=== PATIENT | male | born 1975 | race Hispanic/Latino ===

== ENCOUNTER 2024-11-25 18:19 | Emergency (ER) | payer OTHER ==
[~2024-11-25] VITALS: Ht 180.3 cm; Wt 81.6 kg
--- NOTE | 2024-11-25 18:28 | ERN ---
ED Note History of Present Illness Stated Complaint: RIGHT TOE FRACTURE Chief Complaint: FOOT INJURY/PAIN Time Seen by MD: 18:22 Dictation: PATIENT IS HERE WITH A LACERATION TO THE RIGHT MEDIAL HAND AND RIGHT GREAT TOE AFTER A TRAILER FELL ON IT AT WORK. TETANUS SHOT WAS UPDATED AT THE [facility] WHERE HE WAS PRESENTED IN ADDITION THEY DID AN X-RAY AND TOLD HIM THAT HE HAD A BROKEN TOE. HE WAS PLACED IN A BOOT, REFERRED TO [facility] FOR FURTHER EVALUATION AND TREATMENT OF THE PROBABLE OPEN FRA N NOTE THAT PATIENT HAD HIS WORK BOOTS ON AT THE TIME OF THE INCIDENT Allergies: Coded Allergies: No Known Drug Allergies (Unverified Allergy, Unknown, 11/25/24) Past Medical History RN Note Reviewed/Agreed w/PFSH: Yes Review of System Dictation CONSTITUTIONAL: NEGATIVE EXCEPT FOR HPI HEAD/FACE: NEGATIVE EXCEPT FOR HPI EENT: NEGATIVE EXCEPT FOR HPI RESPIRATORY: NEGATIVE EXCEPT FOR HPI GASTROINTESTINAL/ABDOMINAL: NEGATIVE EXCEPT FOR HPI GENITOURINARY: NEGATIVE EXCEPT FOR HPI MUSCULOSKELETAL: NEGATIVE EXCEPT FOR HPI PARTIAL NAIL AVULSION RIGHT GREAT TOE INTEGUMENTARY: NEGATIVE EXCEPT FOR HPI LEFT HAND PALMAR LACERATION NEUROLOGICAL/PSYCH: NEGATIVE EXCEPT FOR HPI HEMATOLOGIC/LYMPHATIC: NEGATIVE EXCEPT FOR HPI ALL SYSTEMS NEGATIVE, EXCEPT NOTED ABOVE. 13 POINT REVIEW OF SYSTEMS ASSESSED AND ALL NEGATIVE EXCEPT FOR ABOVE. Initial Vital Sign VS Vital Signs Date Time Temp Pulse Resp B/P (MAP) Pulse Ox O2 Delivery O2 Flow Rate FiO2 11/25/24 18:22 98.2 90 16 184/90 98 Room Air 0 Physical Exam Dictation VITAL SIGNS REVIEWED GENERAL APPEARANCE: ALERT, ORIENTED X 3, MODERATE ACUTE DISTRESS, WELL DEVELOPED, NOURISHED. HEAD AND FACE: NON-TRAUMATIC. EYES: PERRL, PINK CONJUNCTIVAS, EYELID NO TRAUMA, ANTERIOR CHAMBER WITH ARCUS SENILIS. EARS: PINNAS INTACT AND NO SIGNS OF TRAUMA OR ERYTHEMA EAR CANALS CLEAR AND NO DISCHARGE TM NO ERYTHEMA NOSE: NO DISCHARGE, NO BLEEDING. OROPHARYNX: MOUTH NORMAL, TONGUE PINK, PHARYNX CLEAR,NO ERYTHEMA, TONSILS NO EXUDATES, NO ABSCESSES NOTED, MUCOUS MEMBRANE MOIST NECK: SUPPLE, NON-TENDER, NO THYROMEGALY, NO MASSES, NO JVD, NO BRUITS BREAST:DEFERRED CHEST:NO TENDERNESS, NO CREPITUS, NO PARADOXICAL MOVEMENT, NO RETRACTIONS LUNGS:CLEAR, WELL-VENTILATED, SYMMETRIC, NO RALES, NO WHEEZING, NO RHONCHI, NO STRIDOR, GOOD BREATH SOUNDS BILATERALLY HEART: REGULAR RATE, REGULAR RHYTHM, NO MURMUR, NO GALLOPS VASCULAR: NO PERIPHERAL EDEMA, ABDOMEN: SOFT, POSITIVE BOWEL SOUNDS, NONDISTENDED, NO GUARDING, NONTENDER, NO REBOUND, NO MASSES NO HEPATOMEGALY, NO SPLENOMEGALY, NO ELLIS'S SIGN, NO HERNIAS. RECTAL: DEFERRED GENITAL: DEFERRED NEUROLOGICAL: NORMAL SPEECH, MOTOR FUNCTION INTACT, SENSORY FUNCTION INTACT MUSCULOSKELETAL: NECK NONTENDER, FULL RANGE OF MOTION, BACK NONTENDER, FULL RANGE OF MOTION, EXTREMITIES: NONTENDER, FULL RANGE OF MOTION SKIN: COLOR PINK, DRY,2 CM LACERATION TO PALMAR BASE OF LEFT 5TH FINGER. ALSO PARTIAL AVULSION OF RIGHT GREAT TOENAIL LYMPHATIC: DEFERRED Results (Laboratory/Radiology) Laboratory/Radiology LEFT FOOT X-RAY DEMONSTRATES TRANSVERSE FRACTURE OF DISTAL PHALANX OPEN DUE TO NAIL WAS AVULSED Labs Reviewed?: Yes ED Course ED Course Orders Procedure Category Date Status Time Foot Comp 3+Vws Rt RAD 11/25/24 Taken 18:24 Cefazolin Sodium 1 Gm PHA 11/25/24 Complete Vial (Ancef 1 Gm V 18:24 Saline Lock Iv CPOE 11/25/24 Transmitted 18:24 Lidocaine Hcl 1% 20ml PHA 11/25/24 In Process Vial (Lidocaine Hc 18:30 Ketorolac PHA 11/25/24 Complete Tromethamine 30mg/Ml 18:30 Neomy PHA 11/25/24 Complete Sulf/Bacitra/Polymyxin 18:30 Morphine 2mg Syg PHA 11/25/24 Complete (Morphine 2mg Syg) 19:30 Ondansetron 4mg Inj PHA 11/25/24 Complete (Zofran 4mg Inj) 19:30 Current Medications Medications (Trade) Dose Ordered Sig/Claire Route PRN Reason Start Time Stop Time Status Last Admin Dose Admin Cefazolin Sodium (ANCEF 1 gm vial) 2 gm ONCE STAT IVPB 11/25/24 18:24 11/25/24 18:27 DC 11/25/24 19:43 Ketorolac Tromethamine (toRADol) 30 mg ONCE ONCE IVP 11/25/24 18:30 11/25/24 19:12 DC Lidocaine HCl (Lidocaine HCl 1% 20ml Vial) 10 ml ONCE INJ 11/25/24 18:30 12/25/24 18:29 Morphine Sulfate (morPHINE 2MG SYG) 2 mg ONCE ONCE IVP 11/25/24 19:30 11/25/24 19:31 DC 11/25/24 19:44 Neomycin/ Polymyxin/ Bacitracin (Triple Antibiotic Ointment) 1 appl ONCE ONCE TP 11/25/24 18:30 11/25/24 18:31 DC 11/25/24 19:43 Ondansetron HCl (zoFRAN 4MG INJ) 4 mg ONCE ONCE IVP 11/25/24 19:30 11/25/24 19:31 DC 11/25/24 19:43 Vital Signs Date Time Temp Pulse Resp B/P (MAP) Pulse Ox O2 Delivery O2 Flow Rate FiO2 11/25/24 18:22 98.2 90 16 184/90 98 Room Air 0 1919/SPOKE WITH DR. REYNOSO REGARDING OPEN FRACTURE OF LEFT GREAT TOE. SHE SAID SEND PATIENT HOME WITH [facility] AND HAVE HIM FOLLOW UP WITH HIS DOCTOR TOMORROW FOR REFERRAL TO HER [facility]OUGH [facility]. LEFT 1ST TOE WAS NYDIA TAPE TWO 4TH TOE WITH PADDING. DISTAL NEUROVASCULAR CMS INTACT POST SPLINT PLACEMENT PATIENT GIVEN WOUND CARE INSTRUCTIONS AND TOLD TAKE ANTIBIOTICS DIRECTED UNTIL GONE KEEP LACERATION CLEAN AND DRY FOLLOW BACK UP AT URGENT CARE FOR ORTHOPEDIC REFERRAL. Medical Decision Making MDM MEDICAL DISCHARGE MAKING BASED ON X-RAY OF LEFT FOOT. NAIL AVULSION WAS REPLACED AND SUTURED DOWN LACERATION TO LEFT PALMAR HAND WAS SUTURED SPLINT PLACED TO LEFT 4TH AND 5TH TOES WITH PADDING. NEUROVASCULAR CMS INTACT PATIENT AND GIVEN STRICT INSTRUCTIONS ON WOUND MANAGEMENT TO INCLUDE TAKING ANTIBIOTICS DIRECTED KEEPING WOUNDS CLEAN AND DRY DILIGENT FOLLOW UP WITH HIS DOCTOR IN MANAGEMENT OF OPEN FRACTURE OF TOE Procedure Procedure Dictation: 1909/PROCEDURE EXPLAINED TO PATIENT HE AGREED TO PROCEED LEFT GREAT TOENAIL AVULSED OFF WITHOUT LACERATION. 3 ML 1% LIDOCAINE PLAIN USED FOR DIGITAL BLOCK CUTICLE BED AND TOE CLEANSED THOROUGHLY WITH WOUND CLEANSER TOENAIL WAS REPLACED ANATOMICALLY SUTURED IN PLACE WITH FOUR 3-0 NYLON SUTURES. THROUGH NAIL BED PATIENT TOLERATED WELL NAIL FIRMLY AT HERE TO CUTICLE BED SECOND LACERATION LEFT PALMAR HAND AT THE BASE OF THE 5TH FINGER 2 CM LACERATION USED 2 ML LIDOCAINE 1% PLAIN FOR LOCAL ANESTHETIC CLEANED WITH WOUND CLEANSER LACERATION CLOSED WITH FIVE 4-0 PROLENE SIMPLE INTERRUPTED SINGLE-LAYER CLOSURE PATIENT TOLERATED WELL DX & DISP Disposition: Discharge Departure Impression: Primary Impression: Open fracture of left great toe Additional Impressions: Avulsion of toenail of left foot, Laceration of right hand, Crushing injury of left great toe, initial encounter Condition: Stable Scripts Acetaminophen with Codeine (Acetaminophen-Cod #3 Tablet) 300 Mg-30 Mg Tablet 1 TAB PO Q4H PRN for MODERATE TO SEVERE PAIN, #15 TAB 0 Refills Prov: DEVON FLORES NP 11/25/24 Mupirocin (Bactroban 2% Oint) 2 % Oint 1 APPL TP TID for 5 Days, #15 GM 0 Refills apply to affected area(s) Prov: DEVON FLORES NP 11/25/24 Cephalexin (Cephalexin) 500 Mg Tablet 1 TAB PO TID for 10 Days, #30 TAB 0 Refills Prov: DEVON FLORES NP 11/25/24 Additional Instructions: Follow-up with primary care provider in 1 to 2 days. Take medications as directed here in the emergency room. Okay to continue home medications unless otherwise discussed during your visit in the emergency room today. Return to your nearest emergency room if symptoms worsen or if there is no improvement. Call 911 if you need immediate assistance. Take Tylenol or Motrin [id number] as needed and if no contraindications are present. Increase oral hydration. A wound culture or urine culture was ordered here in the emergency room department please follow-up with primary care provider and advise them to get repeat ports from our facility. If you had any Nuno wrap/splints that were applied here, please do not remove them until you see your primary care or specialty. Keep laceration repairs clean and dry. Apply Bactroban ointment3 times a day with dressing for five days as instructed. Take antibiotics as directed until gone. Follow up with your doctor for referral to Orthopedics. Splint and no weight-bearing left foot until cleared by ortho. Referrals: ANGELY REYNOSO MD Time of Disposition: 20:37 I have reviewed the case, and I agree with, Diagnosis and Plan DEVON FLORES NP Nov 25, 2024 18:28
[2024-11-25] MEDS ORDERED: ketOROlac 30MG VIAL (30MG/ML) IVP ONE (18:30)
[2024-11-25] MEDS: LIDOCAINE HCL 1% 20 ML VIAL INJ SCH (18:30)
[2024-11-25] MEDS: ceFAZolin SODIUM 1 GM VIAL IVPB STA (19:43)
[2024-11-25] MEDS: NEOMY SULF/BACITRA/POLYMYXIN B 1 EACH PACKET TP ONE (19:43)
[2024-11-25] MEDS: ondanSETRON 4MG INJ IVP ONE (19:43)
[2024-11-25] MEDS: morPHINE 2 MG SYG IVP ONE (19:44)
--- NOTE | 2024-11-25 19:52 | NUR ---
LIDOCAINE ADMINISTERED BY Danni FLORES NP TO R DAGO TOE
[2024-11-25] MEDS ORDERED: ACET-2079 PO (20:41)
[2024-11-25] MEDS ORDERED: MUPI22O TP (20:41)
[2024-11-25] MEDS ORDERED: CEPH500T PO (20:41)
--- NOTE | 2024-11-25 21:01 | HMCIMG ---
Exam Type: FOOT COMP 3+VWS RT Clinical Information: RIGHT GREAT TOE LACERATION AFTER TRAILER FELL ON Comparison: None Findings and impression: Nondisplaced fracture of the distal phalanx of the first toe. No other abnormalities.
--- NOTE | 2024-11-25 21:25 | HMCIMG ---
Exam Type: FEMUR 2VW RIGHT Clinical Information: DISTAL ANTERIOR RIGHT THIGH ABRASION WITH PAIN Comparison: None Findings: The bone examination is unremarkable. No fractures or dislocations are seen. No radiopaque foreign bodies are noted. Soft tissues are preserved. IMPRESSION: Normal examination.
[2024-11-25 22:09] VITALS: BP 156/85; PULSE 88; RESP 18; TEMP 98.6; O2SAT 99
== END 2024-11-25 22:11 | disposition home or self-care (01) ==
LOC: EDH 18:19
DX: S92.402B Displaced unspecified fracture of left great toe, initial encounter for open fracture (principal); S97.112A Crushing injury of left great toe, initial encounter; S61.411A Laceration without foreign body of right hand, initial encounter; S70.11XA Contusion of right thigh, initial encounter; S70.311A Abrasion, right thigh, initial encounter; W18.39XA Other fall on same level, initial encounter; Y93.89 Activity, other specified; Y92.89 Other specified places as the place of occurrence of the external cause; Y99.8 Other external cause status
CPT/HCPCS: 99284; 96374; 96375; 73630; 73552; 11730; 12001; J0690; J2270; J2405